=== PATIENT | female | born 1935 | race Caucasian/White ===

== ENCOUNTER 2019-07-14 11:25 | Inpatient (IN) | payer MEDICARE, BC ==
[~2019-07-14] VITALS: Ht 160 cm; Wt 60.9 kg
--- OUTSIDE RECORDS SUMMARY | ~2019-07-14 | XMS | Clinical Summary ---
Demographics + + + | Address | [address] | | | [place] [address] | + + + | Home Phone | | + + + | Preferred Language | Unknown | + + + | Marital Status | Unknown | + + + | Spiritism Affiliation | Unknown | + + + | Race | Unknown | + + + | Ethnic Group | Unknown | + + + Author + + + | Author | [email or web address] (Historical as of | | | 04-11-19) | + + + | Organization | [facility] [email or web address] (Historical as of | | | 04-11-19) | + + + | Address | Unknown | + + + | Phone | Unavailable | + + + Care Team Providers + +------+ + | Care Executive Director Of Marketing Name | Role | Phone | + +------+ + PP | Unavailable | + +------+ + Allergies Not on File Current Medications Not on file Active Problems Not on file Social History + +-------+ +--------+------+ | Tobacco Use | Types | Packs/Day | Years | Date | | | | | Used | | + +-------+ +--------+------+ | Never Assessed | | | | | + +-------+ +--------+------+ + + + | Sex Assigned at | Date Recorded | | | | + + + | Not on file | | + + + Plan of Treatment + + + + + | Health Maintenance | Due Date | Last Done | Comments | + + + + + | Vaccine: | | | | | Dtap/Tdap/Td (1 - | 4 | | | | Tdap) | | | | + + + + + | Vaccine: Zoster (1 | | | | | of 2) | 5 | | | + + + + + | DEXA SCAN SCREENING | | | | | | 0 | | | + + + + + | Vaccine: | | | | | Pneumococcal 65+ | 0 | | | | Low/Medium Risk (1 | | | | | of 2 - PCV13) | | | | + + + + + | Vaccine: Influenza | | | | | (#1) | 9 | | | + + + + + Results Not on filefrom Last 3 Months Insurance + +--------+ +------+-------+ + | Payer | Benefi | Subscriber | Type | Phone | Address | | | t Plan | ID | | | | | | / | | | | | | | Group | | | | | + +--------+ +------+-------+ + | MEDICARE | MEDICA | [id number] | | | [address] | | | RE | | | | [place] [phone] | | | IP-OP | | | | | + +--------+ +------+-------+ + + +--------+ +--------+ + + | Guarantor Name | Accoun | Relation to | Date | Phone | Billing Address | | | t Type | Patient | of | | | | | | | | | | + +--------+ +--------+ + + | DEO GONZALEZ | Person | Self [birth year] | | | | al/Fam | | 1936 | | | | | grant | | | | | + +--------+ +--------+ + + | DEO GONZALEZ | Third | Self | [birth year] | Home: | | | | [employer] | | 1936 | [phone] | [place] [id number] | | | [place] | | | [phone] | | | | ity | | | | | + +--------+ +--------+ + +"
--- OUTSIDE RECORDS SUMMARY | ~2019-07-14 | XMS | Clinical Summary ---
Demographics + + + | Address | [address] | | | [place] [address] | + + + | Home Phone | | + + + | Preferred Language | Unknown | + + + | Marital Status | Unknown | + + + | Adventist Affiliation | Unknown | + + + | Race | Unknown | + + + | Ethnic Group | Unknown | + + + Author + + + | Author | [employer] [facility] (Historical as of | | | 04-11-19) | + + + | Organization | [facility] (Historical as of | | | 04-11-19) | + + + | Address | Unknown | + + + | Phone | Unavailable | + + + Care Team Providers + +------+ + | Care Medical Manager Name | Role | Phone | + [...] +------+-------+ + | MEDICARE | MEDICA | [id number] | | | [address] | | | RE | | | | [place] [phone] | | | IP-OP | | | [...] [birth year] | Home: | | | | [employer] [place] | | 1936 | [phone] | [place] [address] | | | [place] | | | [phone] | | | | ity | | | | | + +--------+ +--------+ + +"
--- OUTSIDE RECORDS SUMMARY | ~2019-07-14 | XMS | Clinical Summary ---
Demographics + + + | Address | [address] | | | [place] [address] | + + + | Home Phone | | + + + | Preferred Language | Unknown | + + + | Marital Status | Unknown | + + + | Evangelical Affiliation | Unknown | + + + | Race | Unknown | + + + | Ethnic Group | Unknown | + + + Author + + + | Author | [email or web address] (Historical as of | | | 04-11-19) | + + + | Organization | [email or web address] (Historical as of | | | 04-11-19) | + + + | Address | Unknown | + + + | Phone | Unavailable | + + + Care Team Providers + +------+ + | Care Fire Suppression Captain Name | Role | Phone | + [...] +------+-------+ + | MEDICARE | MEDICA | [id number] | | | [address] | | | RE | | | | [place] [phone] | | | IP-OP | | | [...] [birth year] | Home: | | | | Republican | | 1936 | [phone] | [place] [address] | | | [place] | | | [address] | | | | ity | | | | | + +--------+ +--------+ + +"
[~2019-07-14 11:25] MED LIST: ASPIR-LOW81 MG PO; ASPIRIN EC81 MG PO; ATENOLOL25 MG PO; BUPROPION XL300 MG PO; CALCIUM500 MG PO; CELECOXIB200 MG PO; CEPHALEXIN500 MG PO; COLACE100 MG PO; DULCOLAX10 MG PR; ESCITALOPRAM OX20 MG PO; FLEET ENEMA133 ML PR; HYDROCODON-ACE1 EA10 PO; IBUPROFEN800 MG PO; LIPITOR20 MG PO; LOVENOX40 MG SUB-Q; MILK OF MA400 MG/5 M PO; MULTI VITAMIN1 EACH PO; NEXIUM20 MG PO; NORCO 5-325 TA1 EACH PO; OXYCODONE HCL5 MG PO; PRIMIDONE50 MG PO; TUMS ULTRA400 MG PO; TYLENOL EXTRA500 MG PO; VICODIN 5-3001 EACH PO; VYTORIN 10-401 EACH PO
--- OUTSIDE RECORDS SUMMARY | 2019-07-14 11:28 | XMS ---
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 Jackie VISIT COUNT (12 MO.) 1 [facility] TOTAL 1 NOTE: Visits indicate total known visits. ED/UCC VISIT TRACKING (12 MO.) 07/14/2019 11:[address] [facility] [place] TYPE: Emergency COMPLAINT: - MULTIPLE COMPLAINTS INPATIENT VISIT TRACKING (12 MO.) No inpatient visits to display in this time frame [email or web address]
[2019-07-14] MEDS ORDERED: CELECOXIB200 MG PO (11:59)
[2019-07-14] MEDS ORDERED: DILT-XR120 MG PO (11:59)
[2019-07-14] MEDS ORDERED: POLYETHYLENE GLY1 GM PO (12:03)
[2019-07-14] MEDS ORDERED: GUAIFENESI100 MG/5 M PO (12:10)
--- NOTE | 2019-07-14 16:00 | NUR ---
PT ARRIVED TO UNIT VIA STRETCHER. REQUIRED FULL ASSIST TRANSFER TO HOSPITAL BED. ALERT, ORIENTED TO SELF AND LOCATION. PT PRESENTS FORGETFUL, REPEATS QUESTIONS. ASKED TO GO TO BED DESPITE BEING IN BED, ASKED IF THERE WAS A WASHER AND DRYER IN HALLWAY. PT INITIALLY REPORTS PAIN IN BROKEN TOOTH BUT THEN LATER STATES IT'S HER THROAT. HAS HAD MINIMAL ORAL INTAKE FOR THE LAST FEW DAY PER REPORT. PT TAKING SIPS OF WATER NOW, JUSTIN WELL. DINNER ORDERED. IV INFUSING WNL. BED ALARM ON. CALL LIGHT WITHIN REACH.
--- NOTE | 2019-07-14 17:45 | NUR ---
ORDERED PUDDING AND MASHED POTATOES FOR PT. PT NOTED TO ONLY BE PICKING AT DINNER. APPEARS TO HAVE DIFFICULTY WITH COORDINATION FEEDING SELF BUT REPORTS SHE TYPICALLY FEEDS HERSELF AT HOME. 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 WHEN OFFERED ASSISTANCE WITH FEEDING PT REFUSED STATED "I DON'T WANT ANYMORE ANYWAYS." CALL LIGHT WITHIN REACH.
[2019-07-14] MEDS ORDERED: DAILY VITE1 EACH PO (17:55)
[2019-07-14] MEDS ORDERED: NYSTOP60 GM TOP (17:58)
--- NOTE | 2019-07-14 19:05 | EKG ---
[facility] [address] [facility] [place] [address] Signed Normal sinus rhythm Left axis deviation Voltage criteria for left ventricular hypertrophy Inferior infarct , age undetermined Abnormal ECG When compared with ECG of 09-JAN-2017 12:16, QRS axis shifted left Inferior infarct is now present Nonspecific T wave abnormality now evident in Anterolateral leads QT has shortened Confirmed by MARY BETH RAMIREZ DO ([id number]) on 07/14/2019 7:04:47 PM Electronically Signed By: MARY BETH RAMIREZ DO 07/14/19 1905 PATIENT NAME: DEO GONZALEZ Electrocardiogram DATE OF : 33 PHYSICIAN: MARY BETH RAMIREZ DO REPORT #: [id number] REPORT IS CONFIDENTIAL AND NOT TO BE RELEASED WITHOUT AUTHORIZATION
--- NOTE | 2019-07-14 19:49 | NUR ---
REPORT RECEIVED FROM DAY SHIFT RN. PT LYING IN BED WATCHING TV. IVF INFUSING. PT DENIES NEEDS AT THIS TIME. CALL LIGHT IN REACH.
--- NOTE | 2019-07-14 20:40 | NUR ---
PT INCONTINENT OF URINE. ATTENDS CHANGED, JONAH CARE DONE. CLEAN LINEN AND GOWN CHANGED. PT DEMONSTRATED USE OF CALL LIGHT. BED ALARM ON, CALL LIGHT IN REACH.
--- NOTE | 2019-07-14 21:30 | NUR ---
ASSESSMENT COMPLETE. EVENING MEDS GIVEN WITHOUT DIFFICULTY. PRN GIVEN FOR 5/10 BACK/MOUTH PAIN. PT STATES SHE HAS A BROKEN TOOTH IN FRONT AND A LOOSE TOOTH ON THE LEFT SIDE THAT IS CAUSING DISCOMFORT. PT ORIENTED TO SELF AND PLACE. BED ALARM ON FOR SAFETY. NO FURTHER NEEDS AT THIS TIME. CALL LIGHT IN REACH.
--- NOTE | 2019-07-15 00:53 | NUR ---
PT RESTING IN BED WITH EYES CLOSED, NAD. CALL LIGHT IN REACH.
--- NOTE | 2019-07-15 02:28 | NUR ---
PRIMARY RN JOVITA AND THIS SOUND DESIGNER CHANGED PATIENT'S ATTENDS. PATIENT IS REPOSTIONED. CALL LIGHT IS WITHIN REACH.
--- NOTE | 2019-07-15 04:00 | NUR ---
PT RESTING IN BED WITH EYES CLOSED, NAD. IVF INFUSING. RR EVEN AND UNLABORED. CALL LIGHT WITHIN REACH.
--- NOTE | 2019-07-15 04:52 | NUR ---
PT RESTED WELL THROUGHOUT THE NIGHT. ORIENTED TO SELF AND PLACE. BED ALARM ON. 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 INCONTINENT. ASPIRATION PRECAUTIONS. WHEELCHAIR BOUND AT BASELINE. IVF. REPOSITION Q2.
--- NOTE | 2019-07-15 06:49 | NUR ---
PT INCONTINENT OF STOOL. ATTENDS CHANGED, JONAH CARE DONE. REPOSITIONED WITH PILLOWS. SIPS OF WATER GIVEN. NEW BAG IVF INFUSING PER ORDER. CALL LIGHT IN REACH.
--- NOTE | 2019-07-15 08:30 | NUR ---
PT SITTING UP IN BED, ASSISTED WITH BREAKFAST. ATE 50% ALERT AND IN GOOD SPIRITS.
--- NOTE | 2019-07-15 09:15 | NUR ---
In and spoke with Tiarra. Speech is delayed. She is attempting to eat breakfast, but is unable to lift fork to mouth. Peaches cut up in small chuncks and she tries to eat and continuous pickling line pickler with her hand but is unable to get her hand to her mouth. Aid notified and will assist her to eat. Pt states [facility] help her to eat. Pt. plans on returning to [facility] when discharged.
--- NOTE | 2019-07-15 11:00 | NUR ---
ASSIST PT WITH STANDING AND TRANSFERRING INTO WC. TOLERATED AND MOTIVATED TO WORK WITH PT.
--- NOTE | 2019-07-15 18:24 | NUR ---
PT REMAINS ON CONTACT PRECATIONS, AFEBRILE TODAY, ALERT, ORIENTED. UP TO WC WITH PT, APPETITE IMPROVED BUT REQUIRES ASSIST WITH EATING. INC OF BOWEL AND BLADDER. SKIN IN GOOD CONDITION.
--- NOTE | 2019-07-15 19:00 | NUR ---
ROUNDED CHARGE. PATIENT IS RESTING IN BED. PATIENT DENIES ANY COMMENTS, QUESTIONS OR CONCERNS. NO NEEDS NOTED. CALL LIGHT IN REACH.
--- NOTE | 2019-07-15 19:25 | NUR ---
IN ROOM FOR REPORT, PT IS AWAKE IN BED. SHE DENIES NEEDS AT THIS TIME. CALL LIGHT IS WITHIN REACH.
--- NOTE | 2019-07-15 20:55 | NUR ---
IN ROOM TO ADMINISTER MEDICATIONS AND ASSESS PT. ALSO CHANGED ATTENDS AND REPOSITIONED PT WITH HELP OF MITESH LUCIO. PT DENIES FURTHER NEEDS AT THIS TIME. CALL LIGHT IS CLOSE.
--- NOTE | 2019-07-15 21:02 | NUR ---
VS AND I&OS COMPLETED. PTS BRIEF WAS CHANGED WITH THE ASSISTANCE OF SLY ANDRADE AND MYSELF.
--- NOTE | 2019-07-15 23:34 | NUR ---
PT IS RESTING WITH EYES CLOSED, RR IS EVEN AND NONLABORED. CALL LIGHT IS WITHIN REACH. IV IS INFUSING FINE.
--- NOTE | 2019-07-16 01:48 | NUR ---
PT IS RESTING WITH EYES CLOSED, RR IS EVEN AND NONLABORED. CALL LIGHT IS CLOSE AND IV IS INFUSING FINE.
--- NOTE | 2019-07-16 03:12 | NUR ---
PT IS RESTING WITH EYES CLOSED, RR IS EVEN AND NONLABORED. CALL LIGHT IS CLOSE AND IV IS INFUSING FINE.
--- NOTE | 2019-07-16 05:18 | NUR ---
PT IS RESTING WITH EYES CLOSED RR IS EVEN AND NONLABORED. CALL LIGHT IS WITHIN REACH AND IV IS INFUSING FINE.
--- NOTE | 2019-07-16 06:28 | NUR ---
CHANGED PT AND ASSISTED TO REPOSITION. SHE DENIES PAIN AND FURTHER NEEDS AT THIS TIME. VS AMD I&OS ENTERED. CALL LIGHT IS CLOSE.
--- NOTE | 2019-07-16 09:23 | NUR ---
PT IS ALERT, IN GOOD SPIRITS, ATE 90% OF BREAKFAST WITH ASSIST, CONT. TO SNACK ON NAY [employer] FAMILY BROUGHT IN. DENIES ANY NEEDS OR CONCERNS.
--- NOTE | 2019-07-16 10:00 | NUR ---
TWO PERSON ASSIST TO STAND AND PIVOT INTO RECLINER, REMAINS IN GOOD SPIRITS, STATES DAUGHTER IS COMING AT LUNCH TO VISIT. PT WAS INC. OF LARGE BM.
--- NOTE | 2019-07-16 10:09 | NUR ---
Patient was awake this morning, got her face washed fresh water breakfast arrived, Patient is a feeder, call light in reach vitals were taken and ISNOS done. patient is now resting,
--- NOTE | 2019-07-16 10:40 | NUR ---
PATIENT IS SALINE LOCKED. IV FLUSHED WITH NORMAL SALINE, IV SITE INTACT AND FLUSHES WELL.
--- NOTE | 2019-07-16 13:47 | NUR ---
PT ALERT, ORIENTED AND WATCHING TV. HAD PLEASANT VISIT, PT MENTIONED THAT SHE THINKS SHE WILL BE DC'D FRI BACK TO [facility]. SHE SEEMS VERY MUCH AT HOME THERE. EXTENDED A BLESSING, WILL FOLLOW NEEDED
--- NOTE | 2019-07-16 14:10 | NUR ---
DAUGHTER IN TO VISIT DURING LUCH, ATE WELL, IN GOOD SPIRITS, ASSISTED BACK TO BED, INC. CARE GIVEN, WATCHING TV PROGRAM.
--- NOTE | 2019-07-16 19:02 | NUR ---
RECEIVED REPORT FROM SLY WILKINS. pt RESTING IN BED. NO REQUESTS AT THIS TIME. CALL LIGHT WITHIN REACH. WHITEBOARD UPDATED.
--- NOTE | 2019-07-16 21:23 | NUR ---
ASSESSMENT DONE. MEDICATION INFUSING. pt REFUSED MED (SEE MAR) DUE TO MULTIPLE BMS TODAY. NO REQUESTS AT THIS TIME. CALL LIGHT WITHIN REACH. LIGHTS OFF FOR COMFORT.
--- NOTE | 2019-07-17 00:19 | NUR ---
ROUNDED ON pt. RESTING WITH EYES CLOSED, RESPIRATIONS REGULAR AND UNLABORED. CALL LIGHT WITHIN REACH.
--- NOTE | 2019-07-17 03:16 | NUR ---
ROUNDED ON pt. RESTING WITH EYES CLOSED, RESPIRATIONS REGULAR AND UNLABORED. CALL LIGHT WITHIN REACH.
--- NOTE | 2019-07-17 05:04 | NUR ---
pt RESTED MOST OF SHIFT. INCONT OF URINE. WHEELCHAIR BOUND AT BASELINE. IV SL, IV ABX. 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 USES CALL LIGHT APPROPRIATELY.
--- NOTE | 2019-07-17 06:29 | NUR ---
pt WOKE TO NOISE IN ROOM. ASSESSMENT DONE, NO CHANGES. DEPENDS CHANGED, JONAH CARE DONE. WATER REFRESHED. NO FURTHER REQUESTS AT THIS TIME. CALL LIGHT WITHIN REACH.
--- NOTE | 2019-07-17 07:26 | NUR ---
0700: REPORT RECIEVED FROM [facility]. PT SLEEPING AT THIS TIME AND APPEARS IN NO DISTRESS. CALL ABEL WITHIN REACH.
--- NOTE | 2019-07-17 08:07 | NUR ---
PT RESTING IN HER BED WITH NO COMPLAINTS OF PAIN OR ANY OTHER PROBLEMS. PT IS NOT ORIENTED TO PLACE OR DATE. CALL ABEL WITHIN REACH AND BED ALARM TURNED ON.
--- NOTE | 2019-07-17 09:36 | NUR ---
PATIENT RESTING IN BED. PATIENT GOES TO USE BASE COMMODE. TWO PERSON ASSISTING. PATIENT BACKS TO CHAIR. LINENS CHANGED. SETS UP TABLE FOR BREAKFAST. VITAL SIGNS AND I&O DONE. CALL LIGHT WITHIN REACH. NO OTHER NEEDS AT THIS TIME
--- NOTE | 2019-07-17 09:52 | NUR ---
DISCHARGE REPORT CALLED TO GIGI RN AT [facility].
--- NOTE | 2019-07-17 09:59 | NUR ---
PT RESTING IN HER CHAIR AND IS EATING BREAKFAST. SHE DENIES ANY PAIN OR PROBLEMS.
== END 2019-07-17 10:30 | disposition home or self-care (01) | DRG 690 ==
LOC: ED 11:25 → MS 11:27
PROVIDERS: ADMIT Student in an Organized Health Care Education/Training Program
DX: N39.0 Urinary tract infection, site not specified (principal); Z16.12 Extended spectrum beta lactamase (ESBL) resistance; B96.20 Unspecified Escherichia coli [E. coli] as the cause of diseases classified elsewhere; E87.6 Hypokalemia; I10 Essential (primary) hypertension; F39 Unspecified mood [affective] disorder; E78.5 Hyperlipidemia, unspecified; Z86.73 Personal history of transient ischemic attack (TIA), and cerebral infarction without residual deficits; Z79.1 Long term (current) use of non-steroidal anti-inflammatories (NSAID); Z79.82 Long term (current) use of aspirin; Z79.899 Other long term (current) drug therapy
CPT/HCPCS: 36415; 51701; 71045; 80048; 80053; 81001; 83605; 83735; 84100; 84484; 85025; 87077; 87088; 87186; 93005; 93010; 97162; 97166; 99285-25; J0696; J1335; J1650; J7030; J7121

== ENCOUNTER → 2019-10-08 | Emergency (ER) | payer MEDICARE, BC ==
[~2019-10-08] VITALS: Ht 160 cm; Wt 60.9 kg
[~2019-10-08] MED LIST changes: +DAILY VITE1 EACH PO; +DILT-XR120 MG PO; +GUAIFENESI100 MG/5 M PO; +MOBIC15 MG PO; +NYSTOP60 GM TOP; +POLYETHYLENE GLY1 GM PO
--- OUTSIDE RECORDS SUMMARY | 2019-10-08 13:46 | XMS ---
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 No recent Security Events currently on file CRITERIA MET - [facility] Care Guidelines CARE PROVIDERS DEANNE MUNIZ Family [facility] 07/15/2019-Current PHONE: [phone] DR FARIDA TAPIA Primary Care Current PHONE: [phone] Guidelines Source: [facility] Guidelines Date: 04/24/2018 Care Coordination: PATIENT IS UNDER SERVICES AT [facility].\T\nbsp; IF PATIENT IS SEEN IN THE ED, PLEASE NOTIFY THEM AT [phone].\T\nbsp; IF AFTER HOURS OR ON WEEKENDS PLEASE CALL SWITCHBOARD AT [phone] AND HAVE ON-CALL RN NOTIFIED. E.D. VISIT COUNT (12 MO.) 2 [facility] TOTAL 2 NOTE: Visits indicate total known visits. ED/UCC VISIT TRACKING (12 MO.) 10/08/2019 13:43 [facility] TYPE: Emergency COMPLAINT: - WEAKNESS 07/14/2019 11:26 [facility] TYPE: Emergency COMPLAINT: - MULTIPLE COMPLAINTS INPATIENT VISIT TRACKING (12 MO.) 07/14/2019 11:[address] 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
--- NOTE | 2019-10-09 17:09 | EKG ---
[facility] [address] [place] [address] Signed Normal sinus rhythm Left axis deviation Moderate voltage criteria for LVH, may be normal variant Anteroseptal infarct (cited on or before 09-JAN-2017) T wave abnormality, consider lateral ischemia Abnormal ECG When compared with ECG of 08-OCT-2019 13:58, (Unconfirmed) premature ventricular complexes are no longer present Questionable change in initial forces of Lateral leads Confirmed by STACY MANCIA MD ([id number]) on 10/09/2019 5:09:16 PM Electronically Signed By: STACY MANCIA MD 10/09/19 1709 PATIENT NAME: DEO GONZALEZ Electrocardiogram DATE OF : 33 PHYSICIAN: STACY MANCIA MD REPORT #: [id number] REPORT IS CONFIDENTIAL AND NOT TO BE RELEASED WITHOUT AUTHORIZATION
--- NOTE | 2019-10-09 17:09 | EKG ---
[facility] [address] [place] [address] Signed Poor data quality, interpretation may be adversely affected Sinus tachycardia with occasional premature ventricular complexes Left axis deviation Inferior infarct (cited on or before 07-JAN-2017) Anterolateral infarct , age undetermined Abnormal ECG When compared with ECG of 14-JUL-2019 12:22, Significant changes have occurred Confirmed by STACY MANCIA MD ([id number]) on 10/09/2019 5:08:51 PM Electronically Signed By: STACY MANCIA MD 10/09/19 1709 PATIENT NAME: DEO GONZALEZ Electrocardiogram DATE OF : 33 PHYSICIAN: STACY MANCIA MD REPORT #: [id number] REPORT IS CONFIDENTIAL AND NOT TO BE RELEASED WITHOUT AUTHORIZATION
== END ==
LOC: ED 13:43
DX: I21.4 Non-ST elevation (NSTEMI) myocardial infarction (principal); N39.0 Urinary tract infection, site not specified; Z87.891 Personal history of nicotine dependence; Z79.899 Other long term (current) drug therapy
CPT/HCPCS: 51701; 71045; 80053; 81001; 84484; 85025; 87077; 87088; 87186; 93005; 93010; 99285-25; J1644; J7040

== ENCOUNTER 2020-11-29 18:48 | Inpatient (IN) | payer MEDICARE, BC ==
[~2020-11-29] VITALS: Ht 160 cm; Wt 44.2 kg
--- NOTE | 2020-11-30 00:32 | EKG ---
[facility] [address] [facility] [place] [address] Signed Normal sinus rhythm Left axis deviation Inferior infarct , age undetermined Possible Anterior infarct (cited on or before 09-JAN-2017) Abnormal ECG When compared with ECG of 08-OCT-2019 16:01, Significant changes have occurred Confirmed by MICHAEL BHATTI MD ([id number]) on 11/30/2020 12:32:01 AM Electronically Signed By: MICHAEL BHATTI MD 11/30/20 0032 PATIENT NAME: DEO GONZALEZ Electrocardiogram DATE OF : 33 PHYSICIAN: MICHAEL BHATTI MD REPORT #: [id number] REPORT IS CONFIDENTIAL AND NOT TO BE RELEASED WITHOUT AUTHORIZATION
--- NOTE | 2020-11-30 00:45 | NUR ---
pt ARRIVED TO THE FLOOR. 4PA FROM STRETCHER TO BED. pt REPORTED BASELINE WEAKNESS FOR THE LAST "FEW MONTHS" WHEELCHAIR BOUND FROM THAT TIME. NEEDS ASSISTANCE TO MOVE TO AND FROM . pt UNCLEAR ABOUT IF SHE IS INCONT OF URINE. pt ORIENTED, SOMETIMES STRUGGLED TO RECALL THINGS LIKE WHEN HER STROKE WAS. pt WOULD LIKE DAUGHTER BJ TO MAKE DECISIONS WITH HER . BJ IS THE POA. ORIENTED TO ROOM/UNIT. CALL LIGHT WITHIN REACH.
--- NOTE | 2020-11-30 01:34 | NUR ---
ROUNDED ON pt. RESTING IN BED WATCHING TV. ASSISTED WITH CHANNEL. NO FURTHER REQUESTS AT THIS TIME. CALL LIGHT WITHIN REACH.
--- NOTE | 2020-11-30 02:15 | NUR ---
ROUNDED ON pt. RESTING IN BED WITH EYES CLOSED, RESPIRATIONS REGULAR AND UNLABORED. CALL LIGHT WITHIN REACH.
--- NOTE | 2020-11-30 05:11 | NUR ---
IV PUMP BEEPING. pt PULLED IV. HAD BM. PERICARE DONE. ATTEMPTED TO START NEW IV. UNSUCESSFUL. pt HAD ANOTHER BM AND WAS INCONT OF URINE. PERICARE DONE. NEW LINENS. pt CONFUSED, NEW WHAT TOWN SHE WAS IN BUT NOT WHERE. ORIENTED TO SELF. pt KEPT ASKING ABOUT WHO WAS IN THE CHAIR AND WHEN WORK STARTED. BED ALARM ON. CALL LIGHT WITHIN REACH. IV TUBING SECURED.
--- NOTE | 2020-11-30 06:25 | NUR ---
IV ANTIBIOTICS INFUSING PER ORDERS (SEE MAR). pt HAD ANOTHER BM. PERICARE DONE. CALL LIGHT WITHIN REACH.
--- NOTE | 2020-11-30 07:30 | NUR ---
REPORT RECIEVED. PATIENT INCONT OF VERY LOOSE BROWN STOOL. ASSISTED OOB TO COMMODE TO EXPELL MORE LOOSE STOOL. JONAH CARE GIVEN.
--- NOTE | 2020-11-30 08:00 | NUR ---
BACK TO BED WITH ASSIST. ASSESSMENT DONE. DENIES PAIN. IS FORGETFUL. IVF INFUSING.
--- NOTE | 2020-11-30 08:30 | NUR ---
MEDICATINS AND BREAKFAST GIVEN. PATIENT IS W/O C/O. PO CARDIZEM HELD PER MD ORDERS.
--- NOTE | 2020-11-30 09:32 | NUR ---
RESTING WITH HOB ELEVATED. DENIES PROBLEMS. NO DISTRESS NOTED.
--- NOTE | 2020-11-30 10:29 | NUR ---
IN TO SPEAK WITH PT FOR CASE MANAGEMENT ASSESSMENT. PT ABLE TO ANSWER SOME QUESTIONS, NOT ALL. PTS DAUGHTER IN TO VISIT. PT CURRENTLY RESIDES AT [facility] AND WILL RETURN THERE.
--- NOTE | 2020-11-30 12:45 | NUR ---
OOB TO CHAIR. ASSESSMENT DONE.
--- NOTE | 2020-11-30 13:44 | NUR ---
PATIENT DAUGHTER FEEDING PATIENT LUNCH.
--- NOTE | 2020-11-30 14:47 | NUR ---
ASSISTED PATIENT BACK TO BED. PATIENT TOLERATED WELL. PATIENTS DAUGHTER AT THE BEDSIDE, BUT STEPPED OUT TO GRAB LUNCH FROM THE [place] AND WILL BE BACK SHORTLY. NO OTHER NEEDS AT THIS TIME. WILL CONTINUE TO CLOSELY MONITOR.
--- NOTE | 2020-11-30 16:00 | NUR ---
OOB TO CHAIR. IS TOTAL LIFT. DAUGHTER IS IN ROOM. PATIENTIS CONFUSED AT TIMES. IVF TATENT
[2020-11-30] MEDS ORDERED: CLOPIDOGREL75 MG PO (17:58)
[2020-11-30] MEDS ORDERED: ISOSORBIDE DINI10 MG PO (17:59)
[2020-11-30] MEDS ORDERED: ZESTRIL5 MG PO (17:59)
[2020-11-30] MEDS ORDERED: TOPROL XL25 MG PO (18:00)
--- NOTE | 2020-11-30 18:00 | NUR ---
PATIENT DAUGHTER FED PATIENT DINNER. PATIENT TOOK DINNER POOR. TO COMMODE, UNABE TO VOID. TO BED WITH TOTAL ASSIST. PATIENT IS CONFUSED AT TIMES BUT IS AWRE OF PLACE. STATES SHE FEELS TIRED. IVF CONTINUE TO INFUSE.
--- NOTE | 2020-11-30 19:30 | NUR ---
RECEIVED REPORT FROM SLY HAYNES. pt RESTING IN BED WITH EYES CLOSED, RESPIRATIONS REGULAR AND UNLABORED. WHITEBOARD UPDATED. CALL LIGHT WITHIN REACH.
--- NOTE | 2020-11-30 20:24 | NUR ---
PT ARRIVED TO MEDICAL FLOOR IN HER BED FROM CCU. VS TAKEN BY NICK LUCIO. PT IS A LITTLE CONFUSED. BED ALARM IS ON AND WILL CHECK ON HER FREQUENTLY. CALL LIGHT IS CLOSE.
--- NOTE | 2020-11-30 20:24 | NUR ---
REPORT GIVEN TO SLY ANDRADE. pt MOVED TO MED/SURG 119. NICK LUCIO AND [facility] AT BEDSIDE.
--- NOTE | 2020-11-30 20:30 | NUR ---
RECEIVED REPORT FROM [facility]. PATIENT IS A CCU TRANSFER. PATIENT IS CONFUSED AT THIS TIME. BED ALARM ON FOR SAFETY. [facility] IN ROOM. NICK LUCIO IN COMPLETING VITALS. NO NEEDS NOTED. CALL LIGHT IN REACH.
--- NOTE | 2020-11-30 22:15 | NUR ---
PATIENT ASSESMENT COMPLETED. PATIENT DENIES ANY PAIN. PATIENT ASSISTED TO [facility] A 2PA PIVOT. PATIENT WAS ABLE TO VOID. PATIENT IS BACK IN BED RESTING. PATIENTS IV IS NO LONGER PATENT. NEW IV STARTED ON LEFT FOREARM. IV INFUSING PER ORDER. IV ABX INFUSING PER ORDER. INTKAE AND OUPUT RECORDED. PATIENT DENIES ANY NEEDS. CALL LIGHT IN REACH. BED ALARM ON FOR SAFETY.
--- NOTE | 2020-12-01 00:59 | NUR ---
PATIENT IS RESTING IN BED WITH EYES CLOSED, RR 16. CALL LIGHT IN REACH. AND BED ALARM ON FOR SAFETY.
--- NOTE | 2020-12-01 05:09 | NUR ---
PATIENTS MORNING MEDICATIONS GIVEN PER ORDER. PATIENTS BEDDING AND ATTEND CHANGED PATIENT WAS INCONTINENT OF URINE. JONAH CARE COMPLETED. PATIENT TOLERATED ACTIVITY WELL. PATIENT DENIES ANY PAIN. VITALS TAKEN AND RECORDED. INTAKE AND OUTPUT RECORDED PATIENT DENIES ANY NEEDS. CALL LIGHT IN REACH. BED ALARM ON FOR SAFETY.
--- NOTE | 2020-12-01 07:09 | NUR ---
Report from Melissa Cazares RN. Patient resting in bed, eyes closed, respirations even and unlabored. Call light in reach. Bed alarm activated.
--- NOTE | 2020-12-01 09:21 | NUR ---
LYING IN BED, DAUGHTER AT BEDSIDE. DAUGHTER CONCERNED ABOUT PATIENT BEING "SLEEPY" THIS AM. STATES SHE WAS FALLING ASLEEP WHILE EATING BREAKFAST. VITALS OBTAINED, ASSESSMENT COMPLETED. VITALS WNL, PATIENT WAKES TO VOICE. TAKES MEDICATIONS WITHOUT DIFFICULTY. CLOSES EYES TO REST. DAUGHTER INFORMED PATIENT COULD BE SLEEPY DUE TO NOT FEELING WELL, BEING OUT OF HER ENVIRONMENT, UNSURE WHY, BUT WILL CONTINUE TO MONITOR.
--- NOTE | 2020-12-01 10:44 | NUR ---
RESTING IN BED WITH EYES CLOSED, RESPIRATIONS EVEN AND UNLABORED. ALLOWED TO REST. CALL LIGHT IN REACH, BED ALARM ACTIVATED, BED RAILS UP X2.
[2020-12-01] MEDS ORDERED: NITROFURANTOIN100 M1 PO (11:33)
[2020-12-01] MEDS ORDERED: OMEPRAZOLE40 MG PO (11:35)
[2020-12-01] MEDS ORDERED: CBD OIL (11:37)
[2020-12-01] MEDS ORDERED: MILK OF MA400 MG/5 M PO (11:38)
[2020-12-01] MEDS ORDERED: TUMS ULTRA STR470 MG PO (11:39)
[2020-12-01] MEDS ORDERED: PAIN RELIEF EX500 MG PO (11:39)
[2020-12-01] MEDS ORDERED: GILTUSS HONEY118 ML PO (11:40)
[2020-12-01] MEDS ORDERED: NYSTATIN1 EAC2 TOP (11:41)
--- NOTE | 2020-12-01 14:00 | NUR ---
Attempted to see pt, she is sleeping and does not awaken to voice. Per Dr. Waterman pt is sleepy today. She request I contact [facility] to confirm pt may return in the next day or so. Cultures are pending.
--- NOTE | 2020-12-01 15:15 | NUR ---
PATIENT REPOSITIONED. LINENS CHANGED. LUNCH ORDERED AND ARRIVED. CALL LIGHT WITHIN REACH. NO FURTHER NEEDS AT THIS TIME.
--- NOTE | 2020-12-01 15:23 | NUR ---
SITTING UP IN BED, EATING LUNCH WITH ASSIST FROM Rehan SCHAFER CNA. DENIES PAIN. CALL LIGHT IN REACH.
--- NOTE | 2020-12-01 16:22 | NUR ---
Called and left a message at [facility] as I have not received response to text requesting if pt may return tomorrow or Sat.
--- NOTE | 2020-12-01 17:42 | NUR ---
ALERT, SITTING UP IN BED. DENIES NEEDS. SCHEDULED MEDICATIONS ADMINISTERED PRESCRIBED. CALL LIGHT IN REACH, BED RAILS UP X2.
--- NOTE | 2020-12-01 18:34 | NUR ---
SLEPT IN BED MOST OF TODAY. AWAKE THIS EVENING AND WATCHING TV. DID HAVE DAUGHTERS COME AND VISIT. NEEDED ASSISTANCE WITH EATING. TAKES MEDICATIONS WITHOUT DIFFICULTY. DENIES PAIN OR DISCOMFORT. INCONTINENT FOR URINE AT TIMES. CONTINUES ON IV ANTIBIOTICS AND IV FLUIDS DECREASED TODAY.
--- NOTE | 2020-12-01 19:53 | NUR ---
RECEIVED REPORT FROM DAY SHIFT RN. PATIENT IS RESTING IN BED. SNACK PROVIDED NO FURTHER NEEDS NOTED. CALL LIGHT IN REACH. BED ALAARM ON FOR SAFETY.
--- NOTE | 2020-12-01 22:20 | NUR ---
in to get vitals, with rn, changed pt due to inct, pt provided water
--- NOTE | 2020-12-01 22:20 | NUR ---
PATIENT ASSESMENT COMPLETED. VITALS TAKEN AND RECORDED. PATIENTS ATTEND [facility] AND JONAH CARE COMPLETED. PATIENT REPOSITIONED IN BED. PATIENT ATE 50% OF A PROTEIN PACK AND A CHOCOLATE CHIP COOKIE. PATIENT DENIES ANY PAIN. IV INFUSING PER ORDER. IV ABX INFUSING PER ORDER. PATIENT DENIES ANY NEEDS AT THIS TIME. CALL LIGHT IN REACH.
--- NOTE | 2020-12-02 00:35 | NUR ---
PATIENT IS RESTING IN BED WITH EYES CLOSED, RR 17. CALL LIGHT IN REACH. BED ALARM ON FOR SAFETY.
--- NOTE | 2020-12-02 02:45 | NUR ---
IN WITH RN TO CHANGE PT DUE TO INCT OF URINE, NO FURTHER NEEDS
--- NOTE | 2020-12-02 03:00 | NUR ---
PATIENTS ATTEND CHANGED. PATIENT WAS INCONTINENT OF URINE. PATIENT REPOSITIONED IN BED. PATIENT DENIES ANY PAIN. IV INFUSING. NO NEEDS NOTED. CALL LIGHT IN REACH.
--- NOTE | 2020-12-02 06:22 | NUR ---
PATIENT IS ON A SOFT DIET AND FINGER FOODS ARE PREFFERED SHE THEN CAN FEED HERSELF. PATIENT IS ON RA. PATIENT IS FORGETFUL AT TIMES. PATIENT IS A 2PA, PIVOT TO BSC. PATIENT DOES NOT USE CALL LIGHT. BED ALARM ON FOR SAFETY.
--- NOTE | 2020-12-02 06:30 | NUR ---
IN TO GET VITALS, WTIH RN, CHANGED PT DUE TO INCT ON URINE, TURNED PT WITH PILLOW, NO FURTHER NEEDS
--- NOTE | 2020-12-02 06:49 | NUR ---
PATIENTS ATTEND CHANGED. VITALS TAKEN AND RECORDED. INTAKE AND OUPUT RECORDED. PATIENT DENIES ANY PAIN. IV ABX INFUSING PER ORDER. NO NEEDS NOTED. CALL LIGHT IN REACH. BED ALARM ON FOR SAFETY.
--- NOTE | 2020-12-02 07:33 | NUR ---
Report from Melissa Cazares RN. Patient resting in bed with eyes closed, respirations even and unlabored. Call light in reach. Bed rails up X2. Allowed to rest.
--- NOTE | 2020-12-02 08:09 | NUR ---
AM medications administered as prescribed. Takes without difficulty. Sitting up, feeding self breakfast. Assessment completed. IV fluids continue infusing. Call light in reach, bed rails up X2.
--- NOTE | 2020-12-02 10:04 | NUR ---
PATIENT SITTING UP IN CHAIR, LEGS ELEVATED, FOOT PROTECTORS ON. SON IN ROOM. LINENS CHANGED, PERSONAL ITEMS AND CALL LIGHT IN REACH
--- NOTE | 2020-12-02 10:25 | NUR ---
Sitting up in recliner, visiting with family member. Denies needs. Call light in reach.
--- NOTE | 2020-12-02 11:00 | NUR ---
Spoke with pt and her son. Pt states she lives at [facility] and uses a wc. Plans on return their as they assist her with all her ADLS and she is happy there. She is aware she will need to stay through the beginning of the week for her IV antibiotics. Denies needs.
--- NOTE | 2020-12-02 12:11 | NUR ---
SLY GREEN REQUESTED I NOT DISTURB PT AT THIS TIME. WILL FOLLOW NEEDED
--- NOTE | 2020-12-02 12:52 | NUR ---
Lying in bed, eyes closed, respirations even and unlabored. Call light in reach, bed rails up X2. Allowed to rest.
--- NOTE | 2020-12-02 14:08 | NUR ---
PATIENT AWAKE IN BED, VITALS AND I&OS CHARTED. BRIEF IS DRY, CALL LIGHT IN EASY REACH
--- NOTE | 2020-12-02 14:09 | NUR ---
Lying in bed. Alert. States she is feeling tired and would like to nap. Scheduled medication administered as prescribed. Denies other needs. Assessment completed. Bed rails up X2, call light in reach.
--- NOTE | 2020-12-02 16:09 | NUR ---
Resting in bed with eyes closed. Respirations even and unlabored. Call light in reach, bed rails up X2.
--- NOTE | 2020-12-02 17:03 | NUR ---
2 PATIENT PIVOT TO BSC AND THEN TO CHAIR FOR DINNER. LEGS ELEVATED, CALL LIGHT AND PERSONAL ITEMS WITHIN EASY REACH
--- NOTE | 2020-12-02 19:51 | NUR ---
REPORT RECEIVED FROM DAYSHIFT RN, PT LAYING IN BED AWAKE AND ALERT, IVF INFUSING ORDERED. PT REPORTS NO FURTHER NEEDS AT THIS TIME WHEN ASKED, WILL CONTINUE PLAN OF CARE. CALL LIGHT IN REACH, BED IN LOWEST POSITION.
--- NOTE | 2020-12-02 21:20 | NUR ---
THIS RN IN TO ASSESS PT AND TAKE VITALS. PT LAYING IN BED AWAKE AND ALERT. PT IS ORIENTED TO SELF, GENERAL LOCATION, AND YEAR BUT CANNOT RECALL THAT SHE IS IN THE HOSPITAL OR REASON FOR HOSPITALIZATION. PT STATES SHE IS VERY FORGETFUL. PT DENIES ANY PAIN AT THIS TIME. PT ASSESSED, VITALS TAKEN. AFTER ASSESSING PT ATTENDS CHANGED AND PERICARE DONE DUE TO INCONTINENT VOID. PT REPORTS NO FURTHER NEEDS AT THIS TIME, WILL CONTINUE PLAN OF CARE. CALL LIGHT IN REACH, BED IN LOWEST POSITION, HEEL PROTECTORS IN PLACE, PT LAYING IN BED WATCHING TV.
--- NOTE | 2020-12-02 21:21 | NUR ---
IN TO ASST RN WITH CHANGING PT, BOOSTED AND TURNED, NO FURHTER NEEDS AT THIS TIME
--- NOTE | 2020-12-02 21:46 | NUR ---
THIS RN IN TO ADMINISTER IV ABX. PT LAYING IN BED WATCHING TV AWAKE AND ALERT. IV ASSESSED AND IS PATENT, IV ABX NOW INFUSING ORDERED. TV TURNED OFF PER PT'S REQUEST, PT STATES SHE WILL BE GOING TO SLEEP. PT REPORTS NO FURTHER NEEDS WHEN ASKED, WILL CONTINUE PLAN OF CARE. CALL LIGHT IN REACH, BED IN LOWEST POSITION, IV ABX INFUSING ORDERED.
--- NOTE | 2020-12-02 23:10 | NUR ---
THIS RN IN DUE TO IV PUMP ALARMING. PT LAYING IN BED AWAKE, IV SITE WNL, IVF RESTARTED. PT REPORTS NO FURTHER NEEDS AT THIS TIME, WILL CONTINUE PLAN OF CARE. CALL LIGHT IN REACH, BED IN LOWEST POSITION, IVF INFUSING ORDERED.
--- NOTE | 2020-12-03 00:23 | NUR ---
THIS RN IN TO HANG A NEW BAG OF IVF. PT LAYING IN BED SLEEPING, RESPIRATIONS NOTED AND ARE EVEN AND UNLABORED. PT IN NO APPARENT DISTRESS AT THIS TIME AND WAS LEFT UNDISTURBED. NEW BAG OF IVF INFUSING ORDERED, WILL CONTINUE PLAN OF CARE. CALL LIGHT IN REACH, BED IN LOWEST POSITION.
--- NOTE | 2020-12-03 02:15 | NUR ---
IN WITH RN TO TURN PT, PT WAS INCT BUT UP TO VOID, 2PA PIVOT TO THE BSC, PT UP TWICE, NOW BACK IN BED AND BOOSTED, NO FURTHER NEEDS AT THIS TIME, CALL LIGHT IN REACH
--- NOTE | 2020-12-03 02:16 | NUR ---
THIS RN IN WITH DRAIN TECHNICIAN TO TURN PT. PT LAYING IN BED SLEEPING AND AWOKE EASILY. PT STATED SHE NEEDED TO VOID AND WAS HELPED ONTO BSC WITH THE HELP OF KHADIJAH ROMERO. PT 2 PERSON ASSIST AND PLACED ON BSC. PT VOIDED AND HAD A BM, PERICARE DONE. PT HELPED ONTO BED AND THEN STATED SHE NEEDED TO VOID AGAIN, PT HELPED ONTO BSC AGAIN WITHT HE HELP OF KHADIJAH ROMERO AND AFTER VOIDING AND DOING PERICARE, PT WAS HELPED BACK INTO BED. NEW ATTENDS IN PLACE PT WAS ALSO INCONTINENT OF URINE IN OLD ONES. PT THEN REPOSITIONED ON BED AND PILLOW PLACED UNDER R HIP. HEEL PROTECTORS ALSO IN PLACE. PT REPORTS NO FURTHER NEEDS AT THIS TIME, WILL CONTINUE PLAN OF CARE. IVF INFUSING, BED IN LOWEST POSITION, BOTH BED RAILS UP, CALL LIGHT IN REACH.
--- NOTE | 2020-12-03 03:34 | NUR ---
THIS RN IN TO CHECK ON PT. PT LAYING IN BED SLEEPING, RESPIRATIONS NOTED AND ARE EVEN AND UNLABORED. PT IN NO APPARENT DISTRESS AND WAS LEFT UNDISTURBED. IVF INFUSING ORDERED, BED IN LOWEST POSITION, CALL LIGHT IN REACH, WILL CONTINUE PLAN OF CARE.
--- NOTE | 2020-12-03 05:02 | NUR ---
PT SLEPT THROUGH MOST OF THE NIGHT AND HAD NO COMPLAINTS OF PAIN. PT STILL FORGETFULL AT TIMES AND OCCASIONALLY NEEDS REORIENTING. PT INCONTINENT OF URINE THROUGHOUT NIGHT AND IS A 2 PERSON ASSIST WHEN PIVOTING TO BEDSIDE COMMODE. PT USED BSC ONCE IN THE NIGHT TO VOID X2 AND HAVE A BM. PT REPOSITIONED THROUGH NIGHT AND ON IVF.
--- NOTE | 2020-12-03 05:50 | NUR ---
THIS RN IN TO ASSESS PT AND ADMINISTER IV ABX. PT LAYING IN BED AND AWOKE EASILY. IV ABX STARTED AT THIS TIME. PT STATED SHE NEEDED TO VOID AND WAS HELPED UP TO BEDSIDE COMMODE WITH THE HELP OF KHADIJAH ROMERO. PT HAD ALREADY BEEN INCONTINENT OF URINE IN ATTENDS AND VOIDED INTO BSC WELL. PT THEN HELPED BACK ONTO BED NEW ATTENDS IN PLACE. PT THEN REPOSITIONED BACK IN THE BED. PT REPORTS NO FURTHER NEEDS AT THIS TIME WHEN ASKED. WILL CONTINUE PLAN OF CARE. CALL LIGHT IN REACH, BED IN LOWEST POSITION, IVF AND IV ABX INFUSING. PT LAYING IN BED NOW WATCHING TV.
--- NOTE | 2020-12-03 07:00 | NUR ---
Report from SLY Larson. Patient resting in bed, eyes closed, respirations even and unlabored.
--- NOTE | 2020-12-03 08:32 | NUR ---
Assist to bedside commode, then into recliner with 2 person assist. Continent and incontinent of urine at this time. Assist to set up breakfast tray. AM medications administered, assessment completed. Denies other needs at this time.
--- NOTE | 2020-12-03 10:15 | NUR ---
Patient sitting up in chair, visiting with family member. Finished eating breakfast. IV zosyn completed. Denies needs at this time. Call light in reach.
--- NOTE | 2020-12-03 14:15 | NUR ---
ASSIST TO BEDSIDE COMMODE, INCONTINENT OF URINE. BED BATH COMPLETED AND ASSIST INTO BED. REPOSITIONED ON RIGHT SIDE WITH PILLOW FOR SUPPORT. DENIES OTHER NEEDS. ASSESSMENT COMPLETED.
--- NOTE | 2020-12-03 19:51 | NUR ---
REPORT RECEIVED FROM DAY SHIFT RN. PT LYING IN BED ALERT. DENIES PAIN. IVF INFUSING. NO NEEDS AT THIS TIME. WHITE BOARD UPDATED. CALL LIGHT IN REACH.
--- NOTE | 2020-12-03 22:10 | NUR ---
EVENING ASSESSMENT COMPLETE. IV ABX INFUSING PER ORDER. PT ALERT AND ORIENTED X3. DENIES PAIN OR NAUSEA. INCONTINENT OF URINE. JONAH CARE DONE BY STAFF AND CLEAN BRIEF PLACED. REPOSITIONED WITH PILLOWS. PM CARE COMPLETE. PT DENIES QUESTIONS OR CONCERNS. CALL LIGHT IN REACH.
--- NOTE | 2020-12-04 01:21 | NUR ---
IN TO ROUND ON PT. PT INCONTINENT OF URINE. JONAH CARE DONE. NEW BRIEF PLACED. REPOSTIONED WITH PILLOWS. PT DENIES FURTHER NEEDS. CALL LIGHT IN REACH.
--- NOTE | 2020-12-04 03:01 | NUR ---
PT RESTING IN BED WITH EYES CLOSED, NAD.
--- NOTE | 2020-12-04 06:04 | NUR ---
VS AND I&O COMPLETE. PT DENIES PAIN OR NAUSEA. IVF INFUSING. INCONTINENT OF LARGE AMOUNT OF URINE. JONAH CARE DONE. CLEAN BRIEF PLACED. REPOSITIONED IN BED WITH PILLOWS. PT DENIES FURTHER NEEDS. CALL LIGHT IN REACH.
--- NOTE | 2020-12-04 07:10 | NUR ---
Report from Dmitri Garcia RN. Patient resting in bed with eyes closed, respirations even and unlabored. Call light in reach, allowed to rest.
--- NOTE | 2020-12-04 08:13 | NUR ---
Incontinent of urine. Barby-care provided. Repositioned in bed for breakfast. Assist to set up for breakfast. AM medications given, takes without difficulty. Denies other needs. Bed rails up X2, call light in reach.
[2020-12-04] MEDS ORDERED: ESCITALOPRAM OX10 MG PO (08:59)
--- NOTE | 2020-12-04 11:00 | NUR ---
Assist from bed to commode, continent of urine. Assist recliner and repositioned. Denies other needs at this time. Call light in reach, bed rails up X2.
--- NOTE | 2020-12-04 16:37 | NUR ---
Assist to bedside commode X2 assist. Continent of urine. Assist into recliner for supper. Denies other needs at this time. Call light in reach.
--- NOTE | 2020-12-04 17:46 | NUR ---
Sitting up in recliner for lunch and supper. Continent and incontinent of urine today. Smear of stool X1. Alert. Feeds self with set up assist. Continues on LR at 50ml/hour. Likely to DC to [facility] tomorrow.
--- NOTE | 2020-12-04 19:28 | NUR ---
REPORT RECEIVED FROM DAY SHIFT RN. PT SITTING IN RECLINER WITH FEET ELEVATED. DENIES NEEDS AT THIS TIME. WHITE BOARD UPDATED. CALL LIGHT IN REACH.
--- NOTE | 2020-12-04 19:52 | NUR ---
PT TO BSC WITH 2PA PIVOT TX TO VOID 150 ML. JONAH CARE DONE BY STAFF. BACK TO BED AT THIS TIME, JUSTIN WELL. CRACKERS PROVIDED PER REQUEST. VS AND I&O COMPLETE. ASSESSMENT COMPLETE. PT DENIES PAIN OR NAUSEA. NO FURTHER NEEDS. CALL LIGHT IN REACH.
--- NOTE | 2020-12-04 23:10 | NUR ---
PT RESTING IN BED WITH EYES CLOSED. RESPIRATIONS EVEN AND UNLABORED. IVF INFUSING PER ORDER. CALL LIGHT IN REACH.
--- NOTE | 2020-12-05 02:33 | NUR ---
IN TO ROUND ON PT. BRIEF CHANGED DUE TO INCONTINENCE. JONAH CARE DONE. REPOSITIONED IN BED. PT DENIES PAIN. IVF INFUSING. NO FURTHER NEEDS. CALL LIGHT IN REACH.
--- NOTE | 2020-12-05 06:43 | NUR ---
VS AND I&O COMPLETE. PT UP TO BSC WITH 2P PIVOT TRANSFER TO VOID. PT ALSO INCONTINENT OF URINE. JONAH CARE DONE BY STAFF. CLEAN BRIEF PROVIDED. PT BACK TO BED, JUSTIN WELL. REPOSITIONED WITH PILLOWS. HEEL PROTECTORS IN PLACE. IVF INFUSING. NO FURTHER NEEDS AT THIS TIME. CALL LIGHT IN REACH.
--- NOTE | 2020-12-05 07:00 | NUR ---
REPORT RECEIVED FROM JOVITA HEART. PT RESTING IN BED WITH EYES CLOSED, BREATHING EVEN AND UNLABORED. NO APPARENT NEEDS, CALL LIGHT IN REACH
--- NOTE | 2020-12-05 07:53 | NUR ---
SCHEDULED MEDICATIONS ADMINISTERED. ASSESSMENT COMPLETE, PLAN OF CARE REVIEWED WITH PT, PT AGREEABLE. VITAL SIGNS TAKEN. PT REPORTS NO PAIN, NEEDS OR DISCOMFORT. PT STIFF WITH MOVEMENT, ASSISTANCE PROVIDED TO TAKE MEDS/BRING WATER TO MOUTH. IRRIGATION EQUIPMENT INSTALLER IN ROOM TO ASSIST PT TO MOVE TO CHAIR FOR BREAKFAST.
--- NOTE | 2020-12-05 09:09 | NUR ---
DR RAMIREZ IS READY TO DISCHARGE PATIENT TODAY. CALLED JACOB AT [facility]. SHE HAS NO PROBLEMS WITH PATIENT RETURNING. SHE REQUESTS DISCHARGE PAPERS/RX SENT BY FAX TO HER BEFORE SHE GOES. SHE STATES IF PT DOESN'T HAVE W/C HERE, FOR US TO CALL HER DAUGHTER SO THEY CAN BRING IT OVER SHE WILL NEED W/C VAN ARRANGED FOR DISCHAGE TO FACILITY. CALLED DAUGHTER BJ [phone]. SHE STATES EITHER SHE OR HER BROTHER WILL BRING IT OVER THIS MORNING. AFTER HANGING UP, SHE CALLED BACK IN ABOUT 5 MINUTES SAYING HER BROTHER WILL HAVE IT HERE IN ABOUT 45 MINUTES. I ASSURRED HER NOT TO WORRY, WE TRY TO HAVE DISCHARGES DONE BY 2PM, BUT WE CAN BE FLEXIBLE.
--- NOTE | 2020-12-05 10:30 | NUR ---
DISCHARGE PAPERWORK DISCUSSED WITH PT AND HER SON, ALL QUESTIONS ANSWERED. NEW RX INSTRUCTIONS PROVIDED, CURRENT ILLNESS AND TX DISCUSSED. IV REMOVED. SUPERVISOR FEED MILL IN ROOM TO TAKE VITALS AND ASSIST PT WITH DRESSING. WHEELCHAIR VAN CALLED FOR RIDE TO FACILITY.
== END 2020-12-05 11:10 | disposition home or self-care (01) | DRG 871 ==
LOC: ED 18:48 → CCU 18:49 → ED 18:49 → CCU 11-30 00:14 → MS 11-30 20:42
PROVIDERS: ADMIT Internal Medicine; ATTEND Internal Medicine
DX: A41.51 Sepsis due to Escherichia coli [E. coli] (principal); E43 Unspecified severe protein-calorie malnutrition; N39.0 Urinary tract infection, site not specified; Z16.12 Extended spectrum beta lactamase (ESBL) resistance; Z68.1 Body mass index [BMI] 19.9 or less, adult; G91.2 (Idiopathic) normal pressure hydrocephalus; Z20.822 Contact with and (suspected) exposure to COVID-19; R19.7 Diarrhea, unspecified; F17.200 Nicotine dependence, unspecified, uncomplicated; F39 Unspecified mood [affective] disorder; G20 Parkinson's disease; M79.7 Fibromyalgia; Z79.899 Other long term (current) drug therapy; Z79.1 Long term (current) use of non-steroidal anti-inflammatories (NSAID); Z79.02 Long term (current) use of antithrombotics/antiplatelets; Z79.82 Long term (current) use of aspirin; Z87.11 Personal history of peptic ulcer disease
CPT/HCPCS: 36415; 71045; 80048; 80053; 81001; 83605; 84484; 85025; 87040; 87077; 87088; 87186; 93005; 93010; 96365; 96375; 99285-25; C9803; J0696; J2543; J7030; J7121; U0003

== ENCOUNTER 2021-03-07 11:21 | Emergency (ER) | payer MEDICARE, BC ==
[~2021-03-07] VITALS: Ht 160 cm; Wt 44.0 kg
[~2021-03-07 11:21] MED LIST changes: +CBD OIL; +CLOPIDOGREL75 MG PO; +ESCITALOPRAM OX10 MG PO; +GILTUSS HONEY118 ML PO; +ISOSORBIDE DINI10 MG PO; +NITROFURANTOIN100 M1 PO; +NYSTATIN1 EAC2 TOP; +OMEPRAZOLE40 MG PO; +PAIN RELIEF EX500 MG PO; +TOPROL XL25 MG PO; +TUMS ULTRA STR470 MG PO; +ZESTRIL5 MG PO
[2021-03-07] MEDS ORDERED: CEFDINIR300 MG PO (13:48)
--- NOTE | 2021-03-08 11:25 | EKG ---
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
== END 2021-03-07 15:32 | disposition home or self-care (01) ==
LOC: ED 11:21
DX: N39.0 Urinary tract infection, site not specified (principal); Z79.899 Other long term (current) drug therapy; Z79.82 Long term (current) use of aspirin
CPT/HCPCS: 70450; 70496; 70498; 71045; 80053; 81001; 84484; 85025; 85610; 85730; 93005; 93010; 99285-25; J0696; J2405; Q9967